=== PATIENT | female | born 1960 | race Caucasian/White ===

== ENCOUNTER 2020-01-11 15:18 | Outpatient (CLI) | payer BC ==
--- NOTE | 2020-01-11 16:23 | MRI ---
MRI OF THE CERVICAL SPINE WITHOUT CONTRAST: 01/11/20 HISTORY: Cervicalgia with headaches and neck pain. Bilateral shoulder pain, left greater than right. TECHNIQUE: Multiplanar and multisequence MR images were obtained in a cervical spine without contrast. FINDINGS: Mild generalized disc desiccation is seen. Vertebral bodies demonstrate normal height and alignment w ithout fracture or subluxation. The visualized cord demonstrates normal signal throughout. The prevertebral and paraspinal soft tissu es are unremarkable. The craniocervical junction is unremarkable. C2-3: Unremarkable. C3-4: There is a small generalized concentric disc bulge. No posterior facet arthrosis. Mild central canal stenosis. No neural foraminal stenosis. C4-5: There is a small generalized concentric disc bulge. No posterior facet arthrosis. Mild central canal stenosis. Mild to moderate bilateral neural foraminal stenosis. C5-6: There is a small disc osteophyte complex. No posterior facet arthrosis. Moderate central canal stenosis. Moderate left and mild right neural foraminal stenosis. C6-7: Unremarkable. C7-T1: Unremarkable. IMPRESSION: Degenerative changes of the cervical spine as above. POS: EAA
== END 2020-01-11 15:19 | disposition home or self-care (01) ==
LOC: BICMRI 15:18
PROVIDERS: ATTEND Family Medicine
DX: M54.2 Cervicalgia (principal); M47.812 Spondylosis without myelopathy or radiculopathy, cervical region
CPT/HCPCS: 72141

== ENCOUNTER 2020-04-21 14:46 | Outpatient (CLI) | payer BC ==
--- NOTE | 2020-04-21 15:54 | MRI ---
EXAM: Lumbar spine MRI without contrast. HISTORY: Lumbar disc disease, low back pain, pain down both legs COMPARISON: None FINDINGS: Multiplanar, multisequence MRI examination of the lumbar spine is performed. The conus medullaris region appears unremarkable. No evidence for abnormal marrow edema signal. Generalized disc desiccation changes and ligament and facet hypertrophic changes. Approximately 6 cm diameter T2 hyperintense, T1 hypointense focus involving the region of the right k [place] suspicious for right renal calculus although incompletely seen and characterized on this study. Probable very small left renal cyst. There are 2 low-density foci within the gallbladder evidence for gallstones. T12-L1 disc level: Unremarkable. L1-L2 disc level: Unremarkable. L2-L3 disc level: Mild lateral recess and foraminal stenosis. L3-L4 disc level: Moderate bilateral recess stenosis worse on the right side and moderate bilateral f oraminal stenosis. L4-L5 disc level: Moderate bilateral recess stenosis and foraminal stenosis L5-S1 disc level: Small annular fissure without significant stenosis. IMPRESSION: Multilevel variable severity mostly mild to moderate canal, lateral recess, and foraminal stenosis. Evidence for probable gallstones, consider follow-up gallbladder ultrasound. Evidence for renal cysts including a large 6 cm diameter right renal cyst incompletely seen and incom pletely characterized.
== END 2020-04-21 14:47 | disposition home or self-care (01) ==
LOC: BICMRI 14:46
PROVIDERS: ATTEND Family Medicine
DX: M51.16 Intervertebral disc disorders with radiculopathy, lumbar region (principal); M47.26 Other spondylosis with radiculopathy, lumbar region; M48.061 Spinal stenosis, lumbar region without neurogenic claudication; N28.1 Cyst of kidney, acquired
CPT/HCPCS: 72148

== ENCOUNTER 2021-01-18 08:59 | Outpatient (CLI) | payer BC | END 2021-01-18 09:00 | disposition home or self-care (01) | LOC: BICRAD 08:59 | PROVIDERS: ATTEND Family Medicine | DX: M25.551 Pain in right hip (principal); M25.552 Pain in left hip ==

== ENCOUNTER 2021-02-23 10:39 | Outpatient (CLI) | payer BC | END 2021-02-23 10:40 | disposition home or self-care (01) | LOC: BICRAD 10:39 | PROVIDERS: ATTEND Neurological Surgery | DX: M47.26 Other spondylosis with radiculopathy, lumbar region (principal) | CPT/HCPCS: 72110 ==

== ENCOUNTER 2021-03-08 10:28 | Outpatient (CLI) | payer BC | END 2021-03-08 10:29 | disposition home or self-care (01) | LOC: CT 10:28 | PROVIDERS: ATTEND Specialist | DX: R79.89 Other specified abnormal findings of blood chemistry (principal) | CPT/HCPCS: 70492 ==

== ENCOUNTER 2021-03-09 12:16 | Outpatient (CLI) | payer BC ==
[~2021-03-09 12:16] MED LIST: Magnevist 469MG/ML 20 ML VIAL ONE
== END 2021-03-09 12:17 | disposition home or self-care (01) ==
LOC: BICMRI 12:16
PROVIDERS: ATTEND Surgery
DX: K80.20 Calculus of gallbladder without cholecystitis without obstruction (principal); Z90.49 Acquired absence of other specified parts of digestive tract; D18.03 Hemangioma of intra-abdominal structures; N28.1 Cyst of kidney, acquired
CPT/HCPCS: 74183

== ENCOUNTER 2021-04-04 13:53 | Outpatient (CLI) | payer BC ==
[2021-04-04 15:52] LABS: Hemoglobin 12.4 g/dL (12.0-15.5); Mean Corpuscular HGB CONC 32.7 g/dL (32.0-36.0); Mean Corpuscular Hemoglobin 29.1 pg (27.0-33.0); Mean Platelet Volume 10.8 fl (7.4-10.4); Platelet Count 157 10x3/uL (150-450); RBC Distribution Width 13.6 % (11.5-14.5); Red Blood Cell (RBC) Count 4.26 10x6/uL (3.90-5.03); White Blood Cell (WBC) Count 4.2 10x3/uL (3.5-10.5)
[2021-04-04 16:08] LABS: ALT (SGPT) 27 U/L (8-55); AST (SGOT) 27 U/L (5-34); Albumin 4.1 g/dL (3.5-5.0); Alkaline Phosphatase 57 U/L (40-110); Anion Gap 11 mmol/L (10-20); BUN (Urea Nitrogen) 16 mg/dL (9.8-20.1); Bilirubin, Direct 0.2 mg/dL (0.1-0.3); Bilirubin, Total 0.4 mg/dL (0.2-1.2); Calc. Creatinine Clearance 0 mL/min (70-130); Calcium 9.6 mg/dL (7.8-10.44); Carbon Dioxide 31 mmol/L (22-29); Chloride 103 mmol/L (98-107); Glucose 91 mg/dL (70-105); Potassium 4.2 mmol/L (3.5-5.1); Protein, Total 6.5 g/dL (6.0-8.3); Sodium 141 mmol/L (136-145)
[2021-04-05 00:37] LABS: SARS-CoV-2 PCR by NAA Not Detected (NotDetected)
== END 2021-04-04 13:54 | disposition home or self-care (01) ==
LOC: LABBT 13:53
PROVIDERS: ATTEND Surgery
DX: Z01.812 Encounter for preprocedural laboratory examination (principal); K80.20 Calculus of gallbladder without cholecystitis without obstruction; Z20.822 Contact with and (suspected) exposure to COVID-19
CPT/HCPCS: 80048; 80076; 85027; U0003; U0005

== ENCOUNTER 2021-04-09 11:08 | Day surgery (SDC) | payer BC ==
[2021-04-06 10:59] VITALS: BMI 23.9
[2021-04-09] MEDS ORDERED: Bupivacaine 0.25% HCL 30 ML VIAL ONE ×2 (14:13→14:16)
[2021-04-09] MEDS ORDERED: EPINEPHrine 1 MG/ML AMP ONE (14:13)
[2021-04-09] MEDS ORDERED: Fentanyl 100 MCG/2 ML VIAL ONE ×2 (14:14→16:26)
[2021-04-09] MEDS ORDERED: Lidocaine 1% w/Epinephrine 1:100K 20 ML VIAL ONE (14:16)
[2021-04-09] MEDS ORDERED: Iothalamate Meglumine 60% 50 ML VIAL FS ONE (14:16)
[2021-04-09] MEDS ORDERED: PROPOFOL 200 MG/20 ML VIAL ONE (14:33)
[2021-04-09] MEDS ORDERED: Lidocaine 1% PF 5 ML VIAL ONE (14:33)
[2021-04-09] MEDS ORDERED: Ketorolac Tromethamine 30 MG/ML VIAL ONE (14:33)
[2021-04-09] MEDS ORDERED: diphenhydrAMINE 50 MG/ML VIAL ONE (14:33)
[2021-04-09] MEDS ORDERED: Ondansetron PF 4 MG/2 ML Vial ONE (14:33)
[2021-04-09] MEDS ORDERED: Dexamethasone 20 MG/5 ML VIAL ONE (14:33)
[2021-04-09] MEDS ORDERED: SUGAMMADEX SODIUM 200 MG/2 ML VIAL ONE (15:22)
[2021-04-09] MEDS ORDERED: Meperidine HCl/PF 25 MG/ML VIAL ONE (16:00)
== END 2021-04-09 18:15 | disposition home or self-care (01) ==
LOC: SDC 11:08
PROVIDERS: ATTEND Surgery
DX: K80.10 Calculus of gallbladder with chronic cholecystitis without obstruction (principal); D64.9 Anemia, unspecified; E03.9 Hypothyroidism, unspecified; Z87.891 Personal history of nicotine dependence; Z88.5 Allergy status to narcotic agent
CPT/HCPCS: 47532; 88304; J0171; J0690; J1100; J1200; J1885; J2175; J2405; J2704; J3010; Q9961; S0020

== ENCOUNTER 2021-10-03 10:24 | Outpatient (CLI) | payer BC | END 2021-10-03 10:25 | disposition home or self-care (01) | LOC: MRI 10:24 | PROVIDERS: ATTEND Otolaryngology Plastic Surgery within the Head & Neck | DX: H90.5 Unspecified sensorineural hearing loss (principal) | CPT/HCPCS: 70553 ==

== ENCOUNTER 2021-11-13 09:55 | Outpatient (CLI) | payer BC | END 2021-11-13 09:56 | disposition home or self-care (01) | LOC: BICMAMMO 09:55 | PROVIDERS: ATTEND Internal Medicine Rheumatology | DX: M81.0 Age-related osteoporosis without current pathological fracture (principal); M85.851 Other specified disorders of bone density and structure, right thigh; M85.852 Other specified disorders of bone density and structure, left thigh | CPT/HCPCS: 77080 ==

== ENCOUNTER 2022-02-05 14:55 | Outpatient (CLI) | payer BC | END 2022-02-05 14:56 | disposition home or self-care (01) | LOC: BICULT 14:55 | PROVIDERS: ATTEND Urology | DX: N20.0 Calculus of kidney (principal); N28.1 Cyst of kidney, acquired | CPT/HCPCS: 74018; 76770 ==